=== PATIENT | male | born 1980 | race Caucasian/White ===

== ENCOUNTER 2018-09-04 17:44 | Inpatient (IN) | payer OTHER ==
--- NOTE | 2018-09-04 18:10 | EDPHY ---
H & P - Family History Significant Family History: Other (mental illness) - Social History Alcohol Use: None Drug Use: Marijuana Time Seen by Provider: 09/04/18 17:49 HPI/ROS: CHIEF COMPLAINT: Suicidal and homicidal ideation HISTORY OF PRESENT ILLNESS: 37-year-old male with bipolar disorder presents with suicidal and homicidal ideation. He apparently called his mother today, telling her that he planned to buy a gun and shoot 40 people and then shoot himself. PD was contacted and placed him on an M1 hold. He has been compliant with his bipolar medications. He is currently homeless and has been camping by himself. Feels that life is not living and is exceedingly lonely. No recent illness or injury. REVIEW OF SYSTEMS: complete 10 point ROS reviewed and is negative except for the noted elements in the HPI (Ingris Vasquez) - Physical Exam Exam: General Appearance: Alert, pleasant and cooperative Eyes: Pupils equal and round, no conjunctival pallor ENT, Mouth: Mucous membranes moist Neck: Normal inspection Respiratory: Lungs are clear to auscultation Cardiovascular: Regular rate and rhythm Gastrointestinal: Abdomen is soft and nontender Neurological: A&O, nonfocal exam Skin: Warm and dry Extremities: Normal inspection Psychiatric: Mood and affect normal (Ingris Vasquez) Constitutional: Initial Vital Signs Temperature (C) 36.9 C 09/04/18 18:02 Heart Rate 95 09/04/18 18:02 Respiratory Rate 18 09/04/18 18:02 Blood Pressure 136/90 H 09/04/18 18:02 O2 Sat (%) 98 09/04/18 18:02 O2 Delivery Mode Room Air Allergies/Adverse Reactions: No Known Allergies Allergy (Unverified 09/04/18 18:29) Home Medications: Medication Instructions Recorded [place] Carbonate [[place] 600 mg PO DAILY 09/04/18 Carbonate Tab 300 mg (*)] lamoTRIgine [LamICTAL] 25 mg PO DAILY 09/04/18 lamoTRIgine [Lamictal] 150 mg PO BID 09/05/18 Medical Decision Making ED Course/Re-evaluation: 2100: Patient is signed out to me at change of shift by Dr. Vasquez. The patient is awaiting evaluation. The patient is signed out to Dr. Abarca at change of shift. (Pari Ramirez) This patient presents with suicidal and homicidal ideation on an M1 hold. He is calm and cooperative. Medically cleared for mental health evaluation. 2100: signed over to Dr. Ramirez at shift change. (Ingris Vasquez) Differential Diagnosis: includes though not limited to acute psychosis, overdose, medication/drug induced delirium, alcohol intoxication, self harm (Ingris Vasquez) - Data Points Laboratory Results: Laboratory Results 09/04/18 18:35 09/04/18 18:35 Medications Given: Acetaminophen (Tylenol) 650 mg PO Q4HRS PRN PRN Reason: Pain, Mild Stop: 03/03/19 22:21 Last Admin: 09/06/18 21:45 Dose: 650 mg Lamotrigine (Lamictal) 25 mg PO DAILY BRIAN Stop: 03/04/19 13:44 Last Admin: 09/07/18 08:27 Dose: 25 mg [place] Carbonate ([place] Carbonate) 600 mg PO DAILY BRIAN Stop: 03/04/19 13:44 Last Admin: 09/07/18 08:27 Dose: 600 mg Discontinued Medications Olanzapine (Zyprexa Zydis) 10 mg PO ONCE ONE Stop: 09/04/18 23:07 Last Admin: 09/04/18 23:08 Dose: 10 mg Departure - Departure Disposition: Other Psych, Not Aby Clinical Impression: Suicidal ideation, Homicidal ideation Condition: Fair
[2018-09-04 19:01] LABS: PLATELET COUNT 253 10^3/uL (150-400)
--- NOTE | 2018-09-04 21:39 | ASMTTCLDSP ---
TLC Discharge Disposition Disposition: Answers: Admit Discharge Concerns/Recommendations: Notes: In consultation with [facility] ED physician, Ingris Vasquez MD and [facility] on-call psychiatrist, Elba Harris MD, both concurred that pt appears to meet 27-65 criteria requiring psychiatric hospitalization as the patient appears to be an imminent risk of harm to self/others due to a mental illness condition. The patient was read the Patient Rights and Responsibilities Statement (placed on chart) and given photocopy of Rights. The patient was given the 3[facility] prohibited belongings list while in the ED. Was patient given the Answers: Yes Inpatient Behavioral Health Prohibited Belongings List while in the ED? For inpatient Elba Harris MD admission, the following psychiatrist agreed to accept patient for admission to Behavioral Health ([facility]): Type of Hold: Answers: M1/72-hour Hold Hold initiated by: Answers: Police Date Signed: 09/04/2018 09:38 PM Electronically Signed By:Karen Anne. MAGALI,Christel,R-DMT
[2018-09-04] MEDS ORDERED: MAGNESIUM HYDROXIDE 30 ML UDCUP PO PRN (22:22)
[2018-09-04] MEDS ORDERED: MAG HYDROX/AL HYDROX/SIMETH 30 ML UDCUP PO PRN (22:22)
[2018-09-04] MEDS ORDERED: ACETAMINOPHEN 325 MG TAB PO PRN (22:22)
[2018-09-04] MEDS ORDERED: OLANZapine DISINTEGR 10 MG TAB ONE (22:52)
[2018-09-04] MEDS ORDERED: OLANZapine DISINTEGR 10 MG TAB PO ONE (23:06)
--- NOTE | 2018-09-04 23:36 | ASMTTLCEVL ---
TLC Evaluation - Basic Information Evaluation Start Date and 09/04/2018 07:15 PM Time Hospital Status Answers: M1 Hold 72-hr M1 Hold Start Date 09/04/2018 06:05 PM and Time Patient statement Notes: "I've no respect for the profession. The nature of realityholographic manifestation of thoughts... In tantric loops. There is not a day that goes by that I don't think about it (suicide). I lack intimacy, physical touch, sexual expression, and am lonely. When I was stable (three years ago), I was hiding and pretending. Now, I'm floundering to live in such a dysfunctional world. I'm in the spirit realm and my consciousness has changed; the world is no longer relatable. I can't continue living in it. I heard the FBI was called and that made me smile. When I'm in a bad mood, I say that I'm going to kill myself and others. I've been in a bad mood for three years. It is the only way that I get any attention... Attention that is necessary to what is importantglobal warming. The earth is going to end in three years. Society is going to collapse. I know you don't believe me. Kristin Rondon, is the only human in the world I respect. We need to go into 'cathedral mode.' Since the concussion, (nine months ago due to SA) my brain has been scrambled. 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 I hear 'the blue' (grandmother); she tells me to 'persevere.' God talks to me. He is harder to translate. He isn't going to let me tell you the truth. He tells me that I'm safe. I have a purpose to fulfill on earth. Psychotic experience is not easily translated into quotidien point of view. I've been at the end of my rope for a while. The emotional callous of people in our society leaves me numb; they are so afraid of intimacy and vulnerability. It enrages me. I shattered my independent driver's side windshield with my fist. When I speak my truth; people cry and run away. I don't have anyone that cares about me." Narrative Notes: The patient is a 38 y/o male, single, unemployed, with a hx of Bipolar d/o. He is transient/homeless and living in [place], [place]. The patient arrived via EMS on an M1 hold placed by police after patient reported SI and HI to his mother, Nidhi Dorantes ([phone]). Per 27-65 M1, "Resp. has told his other over the past few days that he wants to kill himself. Resp. told mother he was going to purchase a gun and shoot 40 people, then himself. Resp. told [employer] that 'it was just a cry for help.' Resp. told [facility] he feels his medication is no longer working." The patient reported two beneficial visits to [facility] in the past few months. The patient was read his rights @ 22:00. At the time of initial utox testing in the ed the patient was positive for thc. Per Nidhi, the patient has dx hx of Bipolar d/o, remission one year; tx with Ashippun and Lamictal. He was been reporting increasing SI through the week; no known trigger. He has been "desperately suicidal for two days." "Earlier in the week it did not seem to warrant intervention. Today, he was repeatedly calling me threatening suicide. He reported smashing the car window with his hand. He called me from [employer] because he had broken his cell phone so that no one could track him when he decided to kill himself. He is so angry at the whole world, he is going to go to a gun store, buy a gun, shoot 40 people, and then shoot himself. He was so adamant and serious about it, I knew I had to contact police. He stated, 'I'm going to shoot has many people as I can and then myself.' He has never used a gun and he doesn't know how." Police contacted him via phone; he alerted his mother that he was no longer going to hurt others rather overdose on his prescription and "be done with it." Nidhi Dorantes called the patient's provider, Dr. Segundo, ([phone]) who continues to prescribe medication; he advised Nidhi to contact police. He has a hx of thx tx; specifically EMDR. The patient moved to [place] six months ago. He was renting [employer] and has been homeless for the past month; [place] [facility] [place]. Prior to moving, he ended a one year relationship. He is very sensitive to noise. He hasn't been employed for five years; not able to keep employment since ending a seemingly stable seven year relationship. About nine months ago, he attempted suicide by "bashing his head against the wall five times" resulting in a concussion. "It was something about meeting a new potential partner who cheated," the patient consequently "felt abandoned." Diagnosis History Notes: The patient has a dx hx Bipolar d/o, remission one year; tx with Ashippun and Lamictal. Prior suicide attempts Notes: The patient denied any prior suicide attempts. Prior hospitalizations Notes: The patient denied any prior hospitalizations for mh. Treatment Responses Notes: There is not sufficient information to determine the patients treatment response. 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 Segundo without success. History of violence Notes: The patient endorsed homicidal ideation as means of "getting attention." Per Nidhi Dorantes, "He is so angry at the whole world, he is going to go to a gun store, buy a gun, shoot 40 people, and then shoot himself." Psychiatrist: Dr. Segundo Medications (name, dosage, route, freq uency) Notes: Ashippun, doseage unknown, daily, PO Lamictal, doseage unknown, daily, PO Allergies/Reaction Notes: no known allergies Sleep Notes: The patient reported that he is receiving eight hours on average. Appetite Notes: The patient denied changes in appetite including weight loss or gain. Medical/Surgical history Notes: The patient denied any significant medical/surgical hx. Substance use history (frequency, intensity, his tory, duration) Notes: The patient reported thc use, "multiple hits" daily"microdosing" flower, "every couple of hours" for the past six months. He reported using it to heal his "scrambled brain" following his concussion nine months ago. The patient reported using nicotine. Family composition Notes: The patient is a only child; his parents live in [place], [place]. Family psychiatric/substance abuse history Notes: The patient reported that his mother has a dx hx of DID and multiple hospitalizations during his adolescence. She has been stable for the past 15 years. Developmental history Notes: The patient denied any developmental issues or learning disabilities. The patient denied ADD or ADHD. The patient denied any physical abuse, emotional abuse, or sexual abuse. The patient endorsed having achieved normal developmental milestones. The patient reported a concussion nine months ago following a suicide attempt via "bashing head against wall." The patient reported attachment wounding including abandonment due to his mother's frequent hospitalizations during his adolescence. Abuse concerns Answers: None Marital status/children Notes: The patient has never been without dependent children. Living situation Notes: The patient has been camping in [place] for the past month. Sexual history/orientation Notes: The patient reported he is heterosexual. Peer support/family strengths Notes: The patient denied having a supportive peer group. The patient endorsed having a supportive family. The patient stated, "I don't have anyone that cares about me." Education level/history Notes: The patient reported having attended high school and some college, bachelors degree in engineering and journalism. Work history Notes: The patient is unemployed. 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 He is currently living off savings. He stated, "I'm not making money but I'm working on creative material for public speaking. 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 I'm a volunteer for [employer]; [employer] to reverse global [employer]." Notes: no known affiliation Legal Notes: The patient denied any legal issues. Jain/Spiritual Notes: The patient is hyperreligious including that God is talking to him. He identifies as "Gnosticist/Daoist." Leisure Notes: The patient stated, "I don't have fun. I don't know what that is." Collateral Notes: The collateral data was obtained from current and previous [facility] ed records/staff, 27-65 M1, family members: Nidhi Dorantes (mother). Patient's strengths Answers: Intelligent (Please select at least TWO strengths): Supportive Family Willingness TLC Evaluation - Mental Status Exam Appearance: Answers: Appropriate Unclean Eye Contact: Answers: Appropriate for Culture Good/Direct Mood: Answers: Euthymic Affect: Answers: Appropriate Blunted Calm Guarded Incongruent w/ Mood Indifferent Behavior: Answers: Appropriate Cooperative Guarded Passive Talkative Speech: Answers: Clear Coherent Grandiose Perseverating Thought Process: Answers: Disorganized Oriented Insight: Answers: Fair Judgement: Answers: Poor Manic Signs/Symptoms Answers: Grandiosity Hyperreligiosity Hypersexuality Depression Answers: Diminished Interest Signs/Symptoms: Diminished Pleasure Flat Affect Psychomotor Retardation Hallucinations: Answers: Auditory Delusions: Answers: Grandiose Jain/Spiritual Current Stage of Change Answers: Precontemplation Pt reported to have Answers: Yes suicidal/self-injuring ideation/behavior? Pt reported to be making Answers: Yes suicidal/self-injuring threats? Pt reported to have Answers: Yes aggression/assault ideation/behavior? Pt reported to be making Answers: Yes aggression/assault threats? Pt exhibits inability to Answers: Yes care for self/grave disability? Ideation/behavior is Answers: Yes chronic? Patient has a specific Answers: Yes plan? Ideation involves Answers: Yes serious/lethal intent? Ideation has Answers: Yes delusional/hallucinatory content? History of Answers: Yes suicidal/self-injuring ideation, behavior, or threats? History of Answers: No aggressive/assaultive ideation, behavior, or threats? History of serious Answers: No physical harm to self/others while in treatment setting? [facility] Evaluation - Suicide/Homicide Risk Suicide Risk Factors: Answers: Alcohol/Heavy Drug Use Anhedonia Bipolar Disorder Financial Difficulties Flat Affect Inadequate Social Support Lack/Loss of Employment Prior Suicide Attempt(s) Problems with Partner Single Unstable Living Situation Homicide/violence risk Answers: Heavy Drug Use factors: Threats Towards Others Current Suicidal Answers: Yes Ideation? Current Suicidal Ideation Answers: Yes in the Past 48 Hours? Current Suicidal Ideation Answers: Yes in the Past Month? Current Suicidal Answers: Yes Ideation, Worst Ever? Suicide Internal Answers: Jain Beliefs Protective Factors: Suicide External Answers: Positive Therapeutic Protective Factors: Relationships Ranking of patient's Answers: Severe suicidal risk: Ranking of patient's Answers: Severe homicidal risk: TLC Evaluation - Wrap-up BDI Total Score: N/A BDI Question #2 Score: N/A BDI Question #9 Score: N/A BSS Total Score: N/A AXIS I Diagnosis (include DSM-V and ICD-10 codes), must also be entered in [employer], which is the source of truth. Notes: Unspecified Bipolar and Related Disorder 296.80 (F31.9) Cannabis Use Disorder, severe 304.30 (F12.20) Evaluation End Date and 09/04/2018 10:00 PM Time (HH:MM): Date Signed: 09/04/2018 11:35 PM Electronically Signed By:Karen Anne. MAGALI,ANETAc,R-DMT
--- NOTE | 2018-09-05 07:47 | BAPA ---
[f rep st] ADMISSION PSYCHIATRIC ASSESSMENT DATE OF SERVICE: 09/05/2018 CHIEF COMPLAINT: "I'm here because people are worried about me. My mom called the woods laborer." When asked about patient's statement in the emergency room stating he had plans to buy a gun to shoot 40 people and then shoot himself, the patient reports "Oh, I just say those type of things to get people's attention. " The patient reports no suicidal or homicidal ideation. HISTORY OF PRESENT ILLNESS: From the ED note dated 09/04/2018, the patient with a reported history of bipolar disorder, apparently called his mother telling her he planned to buy a gun and shoot 40 people and then shoot himself. The police department was contacted and placed the patient on an M1 hold. Patient reportedly compliant with his bipolar medications. The patient is currently homeless and reports been camping by himself. From the TLC evaluation dated 09/04/2018, the patient was placed on a 72 hour M1 hold with start date and time of 09/04/2018 at 6:05 pm. The patient reported to the TLC sales project coordinator "I have no respect for mental health profession. The nature of reality, holographic manifestation of thoughts and hand trick loops. There is not a day that goes by that I don't think about suicide. I lack intimacy, physical touch, sexual expression and lonely." The patient continued to provide nonsensical answers during the TLC evaluation and for further details please refer to TLC evaluation dated 09/04/2018. The patient reports to this THREAD PULLING MACHINE ATTENDANT that he currently takes lithium 25 mg in the morning and also takes Lamictal. Patient reports he is unsure of the Lamictal dose and reports that both medications are "low doses." The patient's lithium level at time of admission was less than 0.2, which indicates that the patient may have not been taking lithium or may not be taking lithium as prescribed. Roma level is currently not at a therapeutic level. When asked about statements patient was making prior to being admitted at [facility] inpatient hospital, patient reports that he was making these statements "just to get people's attention." The patient describes no current psychiatric symptoms. The patient slept well last night. Currently presents with no jaspal symptoms. The patient reports no depression symptoms. The patient's mother reported that the patient has a history of bipolar disorder, reportedly been in remission for 1 year with treatment of lithium and Lamictal, has been reporting increasing suicidal ideation over the last week, no known trigger. The patient's mother reported the patient has been calling her repeatedly threatening suicide. The patient moved to [place] 6 months ago. He was renting [place] and has been homeless for the past month. He is camping in [place]. Prior to moving to [place] , the patient ended a 1 year relationship. The patient has not been employed for 5 years. The patient seems to be a poor historian. The patient is now reporting none of the symptoms that he was presenting with in the ER and during the TLC evaluation and again reports that the statements he made during the ER and TLC evaluation were "just to get people's attention." PAST PSYCHIATRIC HISTORY: From history provided by patient and patient's mother , the patient has a history of bipolar disorder, reportedly been in remission for 1 year with treatment of lithium and Lamictal. The patient's lithium level at time of admission was less than 0.2. The patient reports his lithium dose as 25 mg. The patient reports he is unsure what his Lamictal dose is. The patient reports no history of suicide attempts. The patient reports no history of prior hospitalizations for psychiatric treatment. The patient reports that he has been getting 8 hours of sleep per night on average. The patient reports no appetite changes, no weight loss or weight gain. ALLERGIES: No known allergies. CURRENT MEDICATIONS: 1. Tylenol 650 mg p.o. q.4 hours p.r.n. 2. Maalox syrup 30 mL p.o. q.6 hours p.r.n. 3. Milk of Magnesia 30 mL p.o. daily p.r.n. 4. Zyprexa Zydis 5-10 mg p.o. at bedtime. PAST MEDICAL HISTORY: The patient reports no medical or surgical history. Will continue to gather this information throughout the course of the patient's hospitalization. SOCIAL HISTORY: The patient reports he has never been and has no children. The patient is currently camping in [place] for the last month. The patient arrived to [place] 6 months ago and prior to camping he was residing in [place]. Patient reports sexual orientation as heterosexual. The patient's parents reside in [place], [place]. The patient is the only child. The patient reports no history of learning delays or difficulties and reports he met all his developmental milestones. The patient reports no history of physical, emotional, or sexual abuse. SUBSTANCE USE HISTORY: Patient reports using THC daily and using it every couple of hours for the past 6 months. The patient also reports using nicotine. Patient reports no other substance use history. FAMILY PSYCHIATRIC HISTORY: The patient reports no family psychiatric history to this THREAD PULLING MACHINE ATTENDANT. The patient reported during the TLC evaluation that his mother has a history of DID and multiple hospitalizations during his adolescents. The patient reported during the TLC evaluation his mother has been stable for the past 15 years. ADMISSION LABS: 1. CBC within normal limits except white blood cells were elevated at 9.62, hemoglobin was elevated at 18.5, hematocrit elevated at 52.3, absolute neutrophils elevated at 7.10. 2. BMP within normal limits. 3. Toxicology screen non-negative for THC, negative for all other substances screened. 4. Roma at time of admission less than 0.2. MENTAL STATUS EXAM: The patient is a well-nourished male looking stated chronological age. Attire is appropriate. Dress is casual. Grooming status is appropriate. Ambulation is independent. Gait is normal and coordinated. Posture is normal and relaxed. Eye contact is appropriate and adequate. Motor activity is appropriate with purposeful, organized, coordinated movements with no involuntary movements noted. Attitude is cooperative. The patient appears attentive and relates well to this interviewer. Language production is spontaneous. Rate, rhythm and volume are normal. Articulation is clear. The patient reports mood as "okay" with congruent affect. The patient's thought process is linear and logical with no loose associations, tangential thought, thought blocking, concrete thinking, or any other signs of formal thought disorder. The patient does not report suicidal or homicidal thoughts, ideas, or plans. The patient denies auditory or visual hallucinations. The patient denies delusions. The patient does not appear to be attending to internal stimuli. The patient is oriented to person, place, time. The patient's attention and concentration are fair. Patient's insight and judgment are poor. There is no evidence of gross cognitive dysfunction at any point during the interview and no evidence of apparent dysfunction in recent or remote memory noted. The patient does not report any undesirable side effects from current medications. DIAGNOSES: Based on the patient's history and current presentation, the patient 's diagnoses are 1. Bipolar disorder by history. 2. Cannabis use disorder, severe. 3. Rule out cannabis induced mood disorder. 4. Homelessness. FORMULATION: The patient is a 37-year-old male, single, unemployed, homeless, arrived to [place] 6 months ago, presents to the hospital involuntarily due to being a risk to himself and others and is currently on an M1 hold. The patient requires continued inpatient care because of recent suicidal and homicidal threats prior to this hospitalization. The patient presents with problems of increasing depression and suicidal ideation. The patient reports these have been increasing over the past several weeks. The onset or exacerbation of symptoms, the trigger for recent symptoms prior to this hospitalization is unknown at this time. The patient reports a past psychiatric history of bipolar disorder and reports bipolar disorder is treated with lithium and Lamictal. The patient appears to be a poor historian. Provides doses for lithium that are unlikely. The patient also reports he is unaware of what the Lamictal dose is and patient's lithium level at time of admission was less than 0.2. The patient reports he has been taking his lithium as prescribed. The patient provides a lithium dose of 25 mg p.o. daily. The patient is a high suicide safety risk due to recent suicidal and homicidal threats the patient made prior to this hospitalization. Protective factors while hospitalized include ongoing safety checks, active involvement in treatment and support from our treatment team. The patient could benefit from inpatient hospitalization for safety, crisis stabilization, and medication evaluation. PLAN: 1. Medications: After reviewing options risks and benefits with the patient, patient agrees to continue current medications listed above. No other medication changes at this time as more time is needed to determine ongoing tolerability and efficacy. Plan is to continue to observe patient for response and side effects from medications, and ongoing monitoring and evaluation. 2. Review with patient informed consent and recommendations for psychotropic medication treatment listed below 3. Labs: no additional labs at this time 4. Therapy: continue milieu and group therapy 5. Further investigation including gathering information from patients relatives and review of past case records to inform treatment plan. 6. Safety/Wellness plan and follow-up outpatient appointments to be established prior to discharge. Next steps are for patient to meet with skin care instructor to plan a safe discharge plan and establish outpatient services for ongoing treatment. 7. Confer with inpatient treatment team regarding treatment plan. 8. Address psychosocial stressors by meeting with care administrative tech to establish discharge plan including referrals for outpatient services. 9. Legal status: M1 10. Consider discharge next week if patient is in stable condition, safe, and has a safe discharge plan. 11. Substance abuse interventions: THC ESTIMATED LENGTH OF STAY: 5-7 days PSYCHOTROPIC MEDICATION TREATMENT INFORMED CONSENT and RECOMMENDATIONS: Review nature of condition, diagnosis, and prognosis. Review nature and purpose of psychotropic medication treatment. Review type of psychotropic medications being ordered. Review risk and benefits of psychotropic medication treatment. Review probable length of time will need to take medications. Review risk and benefits of not undergoing psychotropic medication treatment. Review alternative treatments to psychotropic medications. Review psychotropic medications contraindications, drug-drug interactions, side effects, and importance of reporting any side effects to a psychiatric provider or nurse during inpatient hospitalization, and upon discharge to patients psychiatric outpatient provider, primary care provider, or other health child care lead teacher. Review importance of asking a nurse, psychiatric provider, or primary care provider any questions or problems concerning the psychotropic medications. Verify patient understands the information that has been provided, and understands, accepts, and agrees to psychotropic medications. Review patients safety plan and importance of patient to communicate to staff while hospitalized if patient is ever a danger to self/others, or unable to care for self, and upon discharge, the importance for patient to contact [place] [facility] or [facility], or go to the nearest emergency room, if patient is ever a danger to self/others, or unable to care for self. Recommend that upon discharge patient establish medication management treatment with a psychiatric provider, establishes routine therapy appointments, and follow-up with primary care provider. Verify patient understands and agrees to these recommendations. /[id number]/MODL MTDD
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
--- NOTE | 2018-09-05 13:07 | ASMTCMCOM ---
CM Note CM Note Notes: CC speaks to client briefly during check in. Client completes MTP and NICHELLE for [facility]. Client suggests "I don't know why I am here." Client was sleeping through out the interaction. CC was able to send referral to [facility] request an intake appt. Waiting to hear back. Client is loud on the unit at times affect is labile, etc. Date Signed: 09/05/2018 01:06 PM Electronically Signed By:Brice Crowder. .Mustapha.Dhara.,R.P
[2018-09-05] MEDS: LITHIUM CARBONATE 300 MG CAP PO SCH (14:08)
[2018-09-05] MEDS: lamoTRIgine 25 MG TAB PO SCH ×2 (14:09→14:15)
--- NOTE | 2018-09-05 14:51 | PDCONSULT ---
Land Conservation Specialist Note: INTERNAL MEDICINE CONSULT NOTE REASON FOR CONSULT: medical clearance for inpatient behavioral health HPI: 37yo M with bipolar disorder who is currently on an M1 hold for suicidal and homicidal ideation. He reportedly called his mother and made these threats. Upon my evaluation, he is pleasant and calm. He reports taking his bipolar medications. No recent medication changes. No other medical history. He is currently homeless and has been camping. He denies any recent fevers, chills, neck pain/stiffness, nausea, vomiting, diarrhea, urinary symptoms. PAST MEDICAL HISTORY: bipolar disorder PAST SURGICAL HISTORY: none MEDICATIONS: Please refer to EMR. ALLERGIES: none SOCIAL HISTORY: Homeless, has been camping. Smokes tobacco via a pipe. Occasional marijuana. Denies alcohol or IVD. FAMILY HISTORY: non-contributiry REVIEW OF SYSTEMS: A 10 point review of systems was performed and is negative except as per HPI. OBJECTIVE: VITAL SIGNS: listed below, all within normal limits. PHYSICAL EXAM: GENERAL: He is awake, alert, and oriented in no acute distress. HEENT: Head is atraumatic, normocephalic. Pupils equal round and reactive to light, extraocular movements intact. Oropharynx is clear, moist mucous membranes. NECK : Supple, no JVD or adenopathy. HEART: Regular rate and rhythm without murmur. LUNGS: Clear to auscultation bilaterally. ABDOMEN: Soft, nontender and nondistended. EXTREMITIES: No pedal edema. Warm, well perfused. NEUROLOGIC: No focal deficits. SKIN: No rashes. LABORATORY DATA: CBC shows WBC 9.6, Hgb 18.5, plts 255. BMP and LFTs are within normal limits. Ethyl alcohol negative. Utox negative except for marijuana. Ulen level undetectable. IMAGING STUDIES: None for review. ASSESSMENT/PLAN: 37yo M with bipolar disorder here with SI/HI. 1. SI/HI with underlying bipolar disorder: He is on an M1 hold. Psychiatry is managing his medications and therapies. Notably, his lithium level is undetectable despite him reporting compliance with his medications. 2. Polycythemia: Suspect dehydration/hemoconcentrated. Could consider repeating CBC as outpatient in a few weeks. If remains elevated, could consider testing such as JAK2 mutation. 3. Marijuana use Thank you for this consult. I do not see any contra-indication for this patient' s continued inpatient stay [facility]. Please call or page the internal medicine team with any further questions or concerns.
[2018-09-05] MEDS ORDERED: OLANZapine DISINTEGR 5 MG TAB PO PRN (16:00)
[2018-09-05] MEDS ORDERED: LORazepam 1 MG TAB PO PRN (16:01)
[2018-09-05] MEDS ORDERED: OLANZapine DISINTEGR 5 MG TAB PO SCH (21:00)
[2018-09-06] MEDS: lamoTRIgine 25 MG TAB PO SCH (08:57)
[2018-09-06] MEDS: LITHIUM CARBONATE 300 MG CAP PO SCH (08:57)
--- NOTE | 2018-09-06 11:23 | ASMTCMCOM ---
CM Note CM Note Notes: Client presents better today than previous days. Client suggested he received "alot of sleep, which helped with my mood." Client was approved for Medicaid. Additionally, he noted that he would like to stay in [place], [place] after discharge. Client was set up with [facility] referral and has an intake appt for September 10 at 8:30am at [facility]. Client appears calm and approachable during conversation. Date Signed: 09/06/2018 11:23 AM Electronically Signed By:Brice Crowder. .Mustapha.Dhara.,R.P
--- NOTE | 2018-09-06 16:51 | SOAPPROG ---
SOAP Progress Note Assessment/Plan: Assessment: 37-year-old male with bipolar disorder presents with suicidal and homicidal ideation. He apparently called his mother today, telling her that he planned to buy a gun and shoot 40 people and then shoot himself. PD was contacted and placed him on an M1 hold. He has been compliant with his bipolar medications. He is currently homeless and has been camping by himself. WEEKEND PLAN: 09/06/18 16:41 1. Patient states he has no intention of harming himself or anyone else. He says he made those threats in order to "get attention." 2. Patient reports lithium is helping with his thoughts. He says they are more "clear." 3. Patient is calmer and less agitated today. Yesterday he was angry that lamictal dose was so low. It was explained to patient that since he had been off medications for unknown period of time, the lamictal needed to be restarted and titrated slowly in order to avoid adverse effects. 4. [facility] expires tomorrow. 5. CCM Subjective: Patient presents calmer and more cooperative than yesterday. He was angry on Saturday that HOOP COILING MACHINE OPERATOR restarted his lamictal at lower dose. The rationale for this was explained to patient. Because Lamictal carries risk of serious adverse effects, it must be started at low dose and titrated very carefully. Patient told his MOC he wanted to get a gun and shoot other people, however, patient told HOOP COILING MACHINE OPERATOR yesterday he had no intention of acting on these thoughts. He admits he only said it to "get attention." Today, patient denies any thoughts, plan or intent to hurt himself or others. Objective: Vital Signs Temp Pulse Resp BP Pulse Ox 37 C 94 14 124/85 H 97 09/06/18 06:00 09/06/18 06:00 09/06/18 06:00 09/06/18 06:00 09/06/18 06:00 MSE: Affect: Calmer Mood: "OK" TP: Linear TC: Denies SI/HI, no delusions Insight/Judgment: Poor - Time Spent With Patient Time Spent With Patient: 15" - Pending Discharge Pending Discharge Within 24 Hours: No Pending Discharge Within 48 Hours: No ICD10 Worksheet Patient Problems: Problems Problem Status Onset Homicidal ideation Acute Suicidal ideation Acute
[2018-09-07 06:58] VITALS: BP 118/76
[2018-09-07] MEDS: lamoTRIgine 25 MG TAB PO SCH (08:27)
[2018-09-07] MEDS: LITHIUM CARBONATE 300 MG CAP PO SCH (08:27)
--- NOTE | 2018-09-07 14:23 | ASMTBHDC ---
Notes Note: Notes: Pt. reports doing "really well, better than have been in a long time". Pt. attributes feeling better to getting some sleep and lithium. Pt. reports lithium "like a switch was flipped". Pt. reports no side effects from his current medications. Pt. reports having a little trouble falling asleep but stated he slept "solid". Pt. reports getting enough to eat and attending groups. Pt. reports having "frustration with bureaucracy" adding the "communication is piss poor [with staff". Pt. reports wanting to discharge once his hold expires. Pt. reports he is able to get to his appointments and fill his medications. Pt. reports planning on camping or going to the "[facility] Pt. reports his original plan was to camp for a month and then he will be house sitting in September. Pt. reports interest in housing support. Pt. denied SI, HI, AVH and paranoia. Pt. presents as alert, calm, good eye contact, appeared groomed, mostly polite and cooperative. Staff report pt. sleeping 7 hours and being medication compliant. Per MD, pt. to stay till Saturday to allow lithium level to be checked. Pt. has a follow up appointment on 09/10 @ 8:30am. CC provided pt. with [employer] housing support programs and [facility]. Date Signed: 09/07/2018 02:21 PM Electronically Signed By:Ju Sheets.MAGALI,PHOTOGRAPHIC PLATEMAKER,NCC
--- NOTE | 2018-09-07 16:22 | SOAPPROG ---
SOAP Progress Note Assessment/Plan: Assessment: 37-year-old male with bipolar disorder presents with suicidal and homicidal ideation. He apparently called his mother today, telling her that he planned to buy a gun and shoot 40 people and then shoot himself. PD was contacted and placed him on an M1 hold. He has been compliant with his bipolar medications. He is currently homeless and has been camping by himself. WEEKEND PLAN: 09/06/18 16:41 1. Patient states he has no intention of harming himself or anyone else. He says he made those threats in order to "get attention." 2. Patient reports lithium is helping with his thoughts. He says they are more "clear." 3. Patient is calmer and less agitated today. Yesterday he was angry that lamictal dose was so low. It was explained to patient that since he had been off medications for unknown period of time, the lamictal needed to be restarted and titrated slowly in order to avoid adverse effects. 4. [facility] expires tomorrow. 5. [facility] 09/07/18 16:17 1. Patient agreed to sing in voluntary and stay overnight. Patient would like to d/c in time to make a 2:30pmg appointment tomorrow. 2. Will order lithium level in AM. Patient agrees to continue on [place] and Lamictal after d/c. 3. Patient has f/u with [facility] on 09/10/18 at 0830. Patient says he will be able to make this appointment. 4. Likely to d/c tomorrow. Medications can be titrated as needed by outpatient providers. Subjective: , RN and CC met with patient. MD explained that he would like to check lithium level in AM. If level is subtherapeutic, patient can have dose adjusted by outpatient provider. He will need Lamictal dose increased in 2 weeks. Patient agreed to stay voluntarily and d/c tomorrow. He has appointment at 2: 30pm he doesn't want to miss. He plans to return to his camps[place] [facility]. He told CC that he might also join the [place] community in [facility]. Patient agreed to see providers at [facility], his first appointment is 09/10/18 at 0830. Patient said he would definitely make that appointment. Objective: Vital Signs Temp Pulse Resp BP Pulse Ox 36.8 C 70 14 118/76 97 09/07/18 06:00 09/07/18 06:00 09/07/18 06:00 09/07/18 06:00 09/07/18 06:00 MSE: Affect: Euthymic Mood: "Good" TP: Linear TC: Denies any SI/HI, no delusions Insight/Judgment: Fair - Time Spent With Patient Time Spent With Patient: 20" - Pending Discharge Pending Discharge Within 24 Hours: Yes Pending Discharge Date: 09/08/18 (Likely to d/c tomorrow) Pending Discharge Time: 11:00 ICD10 Worksheet Patient Problems: Problems Problem Status Onset Homicidal ideation Acute Suicidal ideation Acute
[2018-09-08] MEDS: lamoTRIgine 25 MG TAB PO SCH (08:38)
[2018-09-08] MEDS: LITHIUM CARBONATE 300 MG CAP PO SCH (08:38)
--- NOTE | 2018-09-08 12:26 | BDS ---
[f rep st] BEHAVIORAL HEALTH DISCHARGE SUMMARY REASON FOR ADMISSION: From the ED note dated 09/04/2018, patient presented to the emergency room with suicidal and homicidal ideation. The patient apparently called his mother, reported that he planned to buy a gun and shoot 40 people and then shoot himself. During psychiatric evaluation, the patient reported that "I just say those things to get people's attention. I really didn 't mean anything by it. I just need to say these things in order to actually get people's attention." The patient reported no suicidal ideation or homicidal ideation during initial psychiatric evaluation and did not report any suicidal or homicidal ideation throughout the course of his hospitalization. ADMITTING DIAGNOSES: 1. Bipolar II disorder, mild, most recent depressed. 2. Cannabis use disorder, severe. ADMISSION PHYSICAL EXAM: Patient was seen on 09/05/2018, for history and physical consult for medical clearance for inpatient psychiatric hospitalization. The patient was medically cleared for inpatient psychiatric hospitalization and treatment. For further details, please refer to furniture rental consultant note document dated 09/05/2018. ADMISSION LABS: 1. CBC within normal limits except white blood cells were elevated at 9.62, hemoglobin was elevated at 18.5, hematocrit elevated at 52.3, and absolute neutrophils were elevated at 7.10. 2. BMP within normal limits. 3. Hemoglobin A1c within normal limits at 4.7. 4. Liver function within normal limits. 5. Lipid panel within normal limits except VLDL cholesterol was elevated at 29 and HDL cholesterol was low at 32. 6. Toxicology screen non-negative for THC, negative for all other substances screened. 7. [place] level at time of admission on 09/04/2018, was less than 0.2. The patient was started on 600 mg of lithium carbonate with 1st dose on Saturday. The patient also had a dose on Saturday and Saturday. After 3 doses of 600 mg p.o. q. day, patient's lithium level on morning of 09/08/2018, was 0.3. MAJOR PROCEDURES OR TESTS: None. HOSPITAL COURSE: The most prominent symptoms and behaviors while the patient was here were reports of severe anxiety. The patient also presented and reported to be both agitated and irritable at time of admission. Treatment modalities utilized were milieu and group therapy. [place] carbonate 600 mg p.o. q. day was started to target mood symptoms, was tolerated with no report of side effects. Lamictal 25 mg p.o. q. day was started to target mood symptoms and was tolerated with no report of side effects. The patient requested lithium to be dosed twice a day, and patient agreed to lithium carbonate 300 mg p.o. b.i.d. and requested this to be his prescription of lithium at time of discharge. Patient has improved considerably with no signs of psychiatric symptoms and no psychiatric symptoms expressed. Patient reports he has improved since admission, states to be in stable condition, feels safe to discharge, and he contracts for safety. Patients response to treatment was good. There were no adverse or unexpected results of treatment. The patient was safe throughout stay, active in treatment, engaged in groups, and was appropriate with staff. Patient met with treatment team prior to discharge to assess readiness to discharge and review discharge plan. The treatment team consensus is the patient in stable condition, has a safe discharge plan, and is ready to discharge today. CONDITION AT DISCHARGE: Patient is in stable condition and is no longer a danger to self or others, and is not gravely disabled due to mental illness. Patient is no longer in need of inpatient level of care, and can be safely and effectively treated within the community. The patients level of risk at time of discharge is low. MSE: The patient is casually dressed and with good hygiene , and looks stated age. Patient is sitting, posture is upright, and position is relaxed. Patient appears awake, alert, and responds appropriately and reasonably during interview. Patient is engaged, relates well to interviewer, and emotional facial expression is appropriate to situation and changes appropriately with topic. Patient is cooperative, makes comfortable eye contact , and movements are voluntary, deliberate, coordinated, and smooth and even with no inappropriate movements. Patient makes laryngeal sounds effortlessly and shares conversation appropriately; pace of conversation is appropriate, and stream of talking is fluent; articulation is clear and understandable; word choice is effortless and appropriate for education level; completes sentences, occasionally pausing to think; rate and volume are appropriate for interview and setting. Patient reports mood as euthymic. Patients affect is stable with full variable range, congruent with mood, and appropriate to speech and circumstances. Patient has linear and logical thinking, with no loose associations, tangential thought, thought blocking, concrete thinking, or any other signs of formal thought disorder. Patient denies suicidal and homicidal ideation, and denies hallucinations and delusions. Patient appears to be a reliable historian with sound judgement and good insight into current condition. Patient has no apparent dysfunction in recent or remote memory noted , and no evidence of gross cognitive dysfunction noted at any point during the interview. DISCHARGE DIAGNOSES: 1. Bipolar II disorder, mild, most recent depressed. 2. Cannabis use disorder, severe. CURRENT MEDICATIONS: After reviewing options, risks and benefits with the patient, the patient agrees to continue: 1. [place] carbonate 300 mg p.o. b.i.d. 2. Lamictal 25 mg p.o. q. day. Patient requests prescriptions for these medications at time of discharge. Prescription for each medication above is provided for 30 days. Prescriptions are reviewed with the patient at time of discharge to ensure accuracy and patient understanding. Patient reports plan to follow up at [facility] after discharge for ongoing medication evaluation and treatment. The patient reports that his plan is to continue and prefers to continue Lamictal 25 mg p.o. q. day and then follow up with psychiatric provider at [facility] to increase this dose as indicated. The patient also reports plan to follow up at [facility] for a lithium level in 1 to 2 weeks and then adjust dose as indicated by level. Patient responding to current dose of lithium carbonate 300 mg p.o. b.i.d. well and also tolerating current dose. DISPOSITION: The patient left hospital independently and voluntarily and plans to return to his camping site and camp for 2 days, and then patient reports that he will be house sitting in [place], [place] in the month of September. The patient also reports his plan to follow up at [facility] this week for ongoing medication management and therapy. FOLLOWUP: yoga coordinator reports the appropriate outpatient follow-up services have been established and outpatient appointments have been scheduled. The patient received written instructions with times and dates of outpatient follow-up appointments. The following follow-up recommendations were provided to the patient at discharge: Continue psychotropic medications as prescribed and attend appointments as scheduled. Report any side effects to a psychiatric outpatient provider, a primary care provider, or other health women's health care nurse practitioner. Address any questions or problems concerning the psychotropic medications with a psychiatric outpatient provider, a primary care provider, or other health women's health care nurse practitioner. Contact [facility] or [facility], or go to the nearest emergency room, if you are ever a danger to yourself/others, or unable to care for yourself. As soon as possible, establish a routine medication management treatment with a psychiatric provider, establish routine therapy appointments, and follow-up with a primary care provider. LEGAL COURSE: The patient was admitted involuntarily on an M1 hold for inpatient psychiatric hospitalization. Patient discharged today independently and voluntarily. ATTITUDE AT TIME OF DISCHARGE: The patients attitude was positive at time of discharge, and patient reports looking forward to discharging today. The patient reports he feels safe to discharge, is no longer a danger to himself or others, is in stable condition, and contracts for safety. Patient states he will continue medications as prescribed, and establish medication management treatment with an outpatient provider after discharge. Patient reports he understands the information that has been provided to him, and he understands, accepts, and agrees to psychotropic medications. Patient describes internal protective factors as the coping skills he has learned while hospitalized here, and he plans to continue to practice these coping skills after discharge. LABS AND RADIOLOGY STUDIES: There were no pending labs or studies at time of discharge. ADVANCED DIRECTIVES: There were no advance directives on file, and patient was full code during this hospitalization. The following psychotropic medication treatment informed consent and recommendations were provided to the patient at time of discharge. Patient reports he understands, accepts, and agrees to the information that has been provided. PSYCHOTROPIC MEDICATION TREATMENT INFORMED CONSENT and RECOMMENDATIONS: Review nature of condition, diagnosis, and prognosis. Review nature and purpose of psychotropic medication treatment. Review type of psychotropic medications being prescribed. Review risk and benefits of psychotropic medication treatment. Review probable length of time will need to take medications. Review risk and benefits of not undergoing psychotropic medication treatment. Review alternative treatments to psychotropic medications. Review psychotropic medications contraindications, side effects, and importance of reporting any side effects to a psychiatric provider, primary care provider, or other health women's health care nurse practitioner. Review importance of asking a psychiatric provider or primary care provider any questions or problems concerning the psychotropic medications. Review safety plan and the importance to contact [facility] or [facility] , or go to the nearest emergency room, if ever a danger to yourself/others, or unable to care for yourself. Recommend upon discharge to establish routine medication management treatment with a psychiatric provider, establish routine therapy appointments, and follow-up with a primary care provider. Verify patient understands, accepts, and agrees to the information that has been provided. /[id number]/MODL MTDD
--- NOTE | 2018-09-08 12:49 | ASMTBHDC ---
Notes Note: Notes: Pt. reports doing "well". Pt. reports having his blood drawn this morning. Pt. reports he slept "really well". Pt. reports getting enough to eat and attending groups. Pt. asked about taking lithium both in the morning and at night, adding he has a "sense of euphoria for several hous" after taking it. Pt. reports the medication "is really like a switch flipped". Pt. reports he had paid for his camp site through last Saturday, adding he hopes his tent and items are still at the camp site. Pt. reports he will begin house sitting on 09/16. Pt. asked about meeting with someone about applying for disability. Pt. denied SI, HI, AVH and paranoia. Pt. stated upon discharge he plans to walk to [facility]. offered a bus ticket, which pt. accepted. Pt. presents as alert, calm, good eye contact, polite and cooperative. Staff report pt. sleeping 10 hours and being medication compliant. Pt. attended treatment team planning this morning. Pt. has an appointment with [facility] on 09/10 @ 8:30am. Date Signed: 09/08/2018 12:48 PM Electronically Signed By:Ju [email or web address],SENIOR CYTOTECHNOLOGIST,NCC
== END 2018-09-08 12:37 | disposition home or self-care (01) | DRG 885 ==
LOC: UNDOADMIN 22:22 → BBEH 09-05 01:08
PROVIDERS: ADMIT Psychiatry & Neurology Behavioral Neurology & Neuropsychiatry; ATTEND Psychiatry & Neurology Behavioral Neurology & Neuropsychiatry
DX: F31.81 Bipolar II disorder (principal); F12.959 Cannabis use, unspecified with psychotic disorder, unspecified; Z59.0 Homelessness; Z72.0 Tobacco use
CPT/HCPCS: 80305; G0480